=== PATIENT | male | born 1955 | race Caucasian/White ===

== ENCOUNTER 2018-06-23 05:32 | Inpatient (IN) | payer OTHER ==
[2018-06-23] MEDS ORDERED: LIDOCAINE 1% 2 ML INJ ID PRN (05:38)
[2018-06-23] MEDS ORDERED: LR 1,000 ML IV ONE (05:38)
[2018-06-23] MEDS ORDERED: GADOBUTROL 10 ML VIAL IVP ONE (05:57)
[2018-06-23 06:39] LABS: PLATELET COUNT 254 10^3/uL (150-400)
--- NOTE | 2018-06-23 06:45 | PDANEPAE ---
ANE Past Medical History - Cardiovascular History Hx Hypertension: No Hx Arrhythmias: No Hx Chest Pain: No Hx Coronary Artery / Peripheral Vascular Disease: No Hx CHF / Valvular Disease: No Hx Palpitations: No - Pulmonary History Hx COPD: No Hx Asthma/Reactive Airway Disease: No Hx Recent Upper Respiratory Infection: No Hx Oxygen in Use at Home: No Hx Sleep Apnea: No Sleep Apnea Screening Result - Last Documented: Negative - Neurologic History Hx Cerebrovascular Accident: No Hx Seizures: Yes Hx Dementia: No Neurologic History Comment: 06/09/18. RT POSTERIOR TEMPORAL LOBE LESION - Endocrine History Hx Diabetes: No - Renal History Hx Renal Disorders: No - Liver History Hx Hepatic Disorders: No - Neurological & Psychiatric Hx Hx Neurological and Psychiatric Disorders: No - Cancer History Hx Cancer: No - Congenital Disorder History Hx Congenital Disorders: No - GI History Hx Gastrointestinal Disorders: Yes Gastrointestinal History Comment: METALLIC ORAL TASTE SINCE SEIZURE 06/09/18 - Chronic Pain History Chronic Pain: No - Surgical History Prior Surgeries: NONE ANE Review of Systems Review of Systems: - Exercise capacity METS (RN): 4 METS ANE Patient History - Allergies Allergies/Adverse Reactions: No Known Allergies Allergy (Unverified 06/22/18 15:07) - Home Medications Home Medications: ARMOUR THYROID DAILY 06/22/18 [Last Taken 06/23/18 04:15] DEXAMETHASONE TID 06/22/18 [Last Taken 06/22/18 23:00] Keppra BID 06/22/18 [Last Taken 06/22/18 22:15] - NPO status NPO Since - Liquids (Date): 06/23/18 NPO Since - Liquids (Time): 05:30 NPO Since - Solids (Date): 06/22/18 NPO Since - Solids (Time): 20:00 - Smoking Hx Smoking Status: Never smoked - Family Anes Hx Family Hx Anesthesia Complications: NONE ANE Labs/Vital Signs - Labs Result Diagrams: 06/23/18 06:05 - Vital Signs Blood Pressure: 121/78 Heart Rate: 66 Respiratory Rate: 16 O2 Sat (%): 92 Height: 185.42 cm Weight: 100.244 kg ANE Physical Exam - Airway Neck exam: FROM Mallampati Score: Class 3 Mouth exam: normal dental/mouth exam - Pulmonary Pulmonary: clear to auscultation - Cardiovascular Cardiovascular: regular rate and rhythym - ASA Status ASA Status: III
[2018-06-23] MEDS ORDERED: HYDROGEN PEROXIDE 236 ML BOTTLE TP ONE (07:00)
[2018-06-23] MEDS ORDERED: CHLORHEXIDINE GLUC HIBICLENS 118 ML BTL TP ONE (07:00)
[2018-06-23] MEDS ORDERED: THROMBIN (BOVINE) 5,000 UNIT VIAL TP ONE (07:00)
[2018-06-23] MEDS ORDERED: BACITRACIN ZINC 0.5 OZ OINTTUBE TP ONE (07:00)
[2018-06-23] MEDS ORDERED: MANNITOL 20% 100 GM/500 ML BAG IV ONE (07:00)
[2018-06-23] MEDS ORDERED: SURGIFLO MATRIX KIT WITH THROMBIN 8 ML TP ONE (07:00)
[2018-06-23] MEDS ORDERED: AVITENE POWDER 1 GM JAR TP ONE (07:01)
[2018-06-23] MEDS ORDERED: GENTAMICIN SULFATE 80 MG/2 ML VIAL ONE (07:01)
[2018-06-23] MEDS ORDERED: BUPIVACAINE/EPI 0.25% 30 ML SDV ONE (07:01)
[2018-06-23] MEDS ORDERED: POVIDONE-IODINE 30 GM OINTTUBE TP ONE (07:01)
[2018-06-23] MEDS ORDERED: REMIFENTANIL HCL 1 MG VIAL ONE ×2 (07:19→10:45)
[2018-06-23] MEDS ORDERED: PROPOFOL/EMULSION 500 MG/50 ML BOTTLE IV ONE ×2 (07:19)
[2018-06-23] MEDS ORDERED: PROPOFOL 200 MG/20 ML VIAL ONE ×2 (07:19→12:59)
[2018-06-23] MEDS ORDERED: fentaNYL 250 MCG/5 ML INJ ONE (07:20)
[2018-06-23] MEDS ORDERED: ROCURONIUM 50 MG/5 ML VIAL ONE (07:26)
[2018-06-23] MEDS ORDERED: DEXAMETHASONE 4 MG/ML VIAL ONE ×3 (07:27)
[2018-06-23] MEDS ORDERED: GLYCOPYRROLATE 0.2 MG/1 ML VIAL ONE (07:28)
[2018-06-23] MEDS ORDERED: LIDOCAINE HCL 160 MG/4 ML LTA KIT TP ONE (07:29)
[2018-06-23] MEDS ORDERED: PETROLAT,WHT/MIN OIL/SOD CHL 3.5 GM OPHT.OINT ONE (07:29)
[2018-06-23] MEDS ORDERED: DEXAMETHASONE 10 MG/ML VIAL IVP ONE (07:31)
[2018-06-23] MEDS ORDERED: ceFAZolin 2 GM/DEXTROSE 100 ML IV ONE (07:31)
[2018-06-23] MEDS ORDERED: LIDOCAINE 2% 100 MG/5 ML SYR ONE (08:00)
[2018-06-23] MEDS ORDERED: THROMBIN (BOVINE) 20,000 UNIT VIAL TP ONE (08:08)
[2018-06-23] MEDS ORDERED: PHENYLEPHRINE 10 MG/ML SDV ONE (08:15)
[2018-06-23] MEDS ORDERED: levETIRAcetam 1000MG/NACL 100 ML IV ONE (08:30)
[2018-06-23] MEDS ORDERED: ePHEDrine SULFATE 25 MG/5 ML SYR ONE (11:34)
[2018-06-23] MEDS ORDERED: ceFAZolin 1 GM VIAL ONE ×2 (12:30)
[2018-06-23] MEDS ORDERED: ONDANSETRON 4 MG/2 ML VIAL ONE (13:06)
[2018-06-23] MEDS ORDERED: LABETALOL HCL 5 MG/ML 20 ML MDV IVP PRN (13:10)
[2018-06-23] MEDS ORDERED: PHENYLEPHRINE HCL 100 MCG/ML SYR IVP PRN (13:10)
[2018-06-23] MEDS ORDERED: ALBUTEROL 3 ML DEYVIAL IH PRN (13:10)
[2018-06-23] MEDS ORDERED: LR 500 ML IV PRN (13:10)
[2018-06-23] MEDS ORDERED: MEPERIDINE 25 MG/0.5 ML AMP IVP PRN (13:10)
[2018-06-23] MEDS ORDERED: PROMETHAZINE HCL 25 MG/ML INJ IVP PRN (13:10)
[2018-06-23] MEDS ORDERED: METOCLOPRAMIDE 10 MG/2 ML VIAL IVP PRN (13:10)
[2018-06-23] MEDS ORDERED: fentaNYL 100 MCG/2 ML INJ IVP PRN (13:10)
[2018-06-23] MEDS ORDERED: NALOXONE HCL 0.4 MG/ML INJ IVP PRN (13:10)
[2018-06-23] MEDS ORDERED: ONDANSETRON 4 MG/2 ML VIAL IVP PRN (13:10)
[2018-06-23] MEDS ORDERED: HYDROmorphONE/DILAUDID 1 MG/ML INJ IVP PRN (13:10)
[2018-06-23] MEDS ORDERED: NS 500 ML IV PRN (13:10)
[2018-06-23] MEDS ORDERED: POLYETHYLENE GLYCOL 3350 17 GM PKT PO PRN (14:01)
[2018-06-23] MEDS ORDERED: MAGNESIUM HYDROXIDE 30 ML UDCUP PO PRN (14:01)
[2018-06-23] MEDS ORDERED: BISACODYL 10 MG SUPP PR PRN (14:01)
[2018-06-23] MEDS ORDERED: MAG HYDROX/AL HYDROX/SIMETH 30 ML UDCUP PO PRN (14:01)
[2018-06-23] MEDS ORDERED: LACTULOSE 20 GM/30 ML UDCUP PO PRN (14:01)
[2018-06-23] MEDS ORDERED: HYDROCODONE/APAP 10/325 TAB PO PRN (14:01)
--- NOTE | 2018-06-23 14:01 | POSTOPPROG ---
Post Op Note Date of Operation: 06/23/18 Surgeon: Blane Brink Rod Filler: none Anesthesiologist: Anum Anesthesia: GET(General Endotracheal) Pre-op Diagnosis: right temporal brain tumor Post-op Diagnosis: same Indication: same Procedure: right temporal craniotomy for tumor resection Findings: see dictation Inf/Abcess present in the surg proc area at time of surgery?: No EBL: 100-500 Total fluids administered: 1500 Complications: NONE Bowel Protocol: No Clean Closure Performed: No
--- NOTE | 2018-06-23 14:14 | PDCONSULT ---
Black Leather Trimmer Note: NEUROSURGERY resting in PACU AAOx3, speech fluent, CNII-XII intact, no notable visual deficit full strength, no drift wound c/d/i POD#1 s/p right temporal tumor resection - doing well - dex 4q6 - keppra - MRI in AM - SBP<140 - q2h neuro checks Keena
[2018-06-23] MEDS ORDERED: NS W/ 20 KCl/L 1,000 ML IV SCH (14:15)
--- NOTE | 2018-06-23 14:33 | PDMN ---
Medical Necessity Medical necessity: MCG: S 410 craniotomy, supratentorial 3 days INPO list - OP: R temporal craniotomy for tumor resection
[2018-06-23] MEDS: DEXAMETHASONE 4 MG TAB PO SCH (17:37)
--- NOTE | 2018-06-23 18:33 | GOP ---
[f rep st] OPERATIVE REPORT DATE OF OPERATION: 06/23/2018 SURGEON: Blane Brink MD NEUROSURGEON: Blane Brink MD. HOSPICE PLAN ADMINISTRATOR: None. ANESTHESIA: General endotracheal. PREOPERATIVE DIAGNOSIS: Right posterior temporal glioma. POSTOPERATIVE DIAGNOSIS: Right posterior temporal glioma. PROCEDURE PERFORMED: 1. Right temporal craniotomy. 2. Microsurgical gross total resection of right temporal glioma. 3. Use of Stealth stereotactic navigation for volumetric gross total resection of tumor. 4. Use of the operative microscope. 5. Intraoperative neurophysiologic monitoring, including somatosensory-evoked potentials and motor-e voked potentials. FINDINGS: Right temporal high-grade glioma. SPECIMENS: Right temporal brain tumor for frozen and permanent pathology. ESTIMATED BLOOD LOSS: 100 mL. DESCRIPTION OF PROCEDURE: After informed consent was obtained from the patient, the patient was brou ght to the operating room and was placed in a supine position on the operating table. A formal time- out was performed, identifying the patient by name, medical record number and date of . Preoper ative antibiotics were given, an endotracheal tube was placed and general endotracheal anesthesia was smoothly induced. The patient's head was placed in Schwartz pins and turned slightly toward the lef t side with a right-sided shoulder roll. The Stealth was then registered to the scalp and checked fo r accuracy using known surface landmarks. All appropriate leads were placed for intraoperative neuro physiologic monitoring, including somatosensory-evoked potentials and EMG. The navigation was then u sed to localize the tumor and plan a trapdoor style upside-down U-shaped incision over the right ear. 10 mL of 0.25% Marcaine with epinephrine was infiltrated in the skin for hemostasis. The head was then prepped and draped in the normal sterile fashion. A skin incision was made using a 10 blade and the subcutaneous tissues were dissected using monopolar electrocautery. Clary clips were placed for hemostasis. The temporalis muscle and its fascia were opened in line with the incision and a single myocutaneous flap was retracted inferiorly. Again, the navigation was used to be sure that our cran iotomy would be large enough. Two miranda holes were then placed at the inferior temporal fossa and a s brittnee miranda hole superior to the tumor. The craniotome was then used to turn a 4 x 4 cm craniotomy fl ap, encompassing the entirety of the tumor. After all bleeding was controlled using bipolar electroc autery and Gelfoam, the dura was opened in a curvilinear fashion with its base inferiorly and the bra in was visualized. At this point, the operative microscope was brought into the field and the remain jacquelin of the procedure was performed under high-powered magnification. First, the brain was inspected and the gyri and sulci were all inspected. A sulcus just superior to the vein of Jhon was selected and careful arachnoid dissection allowed us to deepen our visualization into the sulcus. After compl ete sulcal opening, a corticectomy was made laterally in the sulcus and some of the underlying tissue was removed. This took us down to the abnormal-appearing tissue of the tumor. This was biopsied an d sent for frozen section, which returned as a glioma. We then very carefully, using microdissection , bipolar electrocautery and suction, the tumor capsule from the surrounding brain. Two ca vities, which were visualized on the preoperative imaging of hemorrhage, were identified and these se rved as the anterior and superior borders of the tumor resection. Some of the tumor was removed kristen sly, but the remaining tumor was removed using the ultrasonic aspirator. Care was taken to preserve the deeper middle cerebral artery vessels in the sulci and we continued this dissection in a circumfe rential fashion around the tumor, starting with the anterior and inferior aspects and finishing with the superior and posterior aspects of the tumor. As we coursed deep in the area of the optic radiati ons, much care was taken to separate what was thought to be tumor from the normal tissue. The ultras onic aspirator was used to peel this tissue from the small band coursing between the tumor and the ve ntricle where the optic radiations were sitting. The ventricle was entered slightly in 1 area, which allowed us to be clear that we had reached the medial border of the tumor. At this point, the navig ation was off because of the relaxation of the brain, but we were able to inspect the cavity. Anteri concha and medially, some more tumor was removed until we were able to visualize normal tissue. The en tirety of the border of the cavity was inspected and I did not see any other abnormal-looking tissue suggestive of tumor. All the bleeding had also stopped, suggesting a gross total resection. At this point, Surgicel was used to line the cavity. The cavity was completely dry and there was no further bleeding. The wound was copiously irrigated using sterile saline. The sulcus was allowed to close and the surface of the brain was inspected. The dura was then closed in a watertight fashion using r unning 4-0 Nurolon. A large piece of Gelfoam was placed over the dura and the craniotomy flap was pl ated back in place using Synthes titanium plates and screws. Final motor-evoked potentials and somat osensory-evoked potentials remained stable. The wound was then copiously irrigated using bacitracin irrigation. The temporalis muscle and the fascia were closed using interrupted 2-0 Vicryls. The gal ea was closed using interrupted 2-0 Vicryls and the skin was closed using a running, locking 3-0 Prol ken. The hair was washed and sterile dressings were placed. The patient was then removed from the [facility] where he was extubated and was transferred to the PACU in stable condition. There were no operative complications. I was scrubbed and present for the entire procedure. All sponge and nee dle counts were correct at the end of the case. BRIEF CLINICAL HISTORY: The patient is a -vpjg-wac man who was having some seizures recent ly. He was transferred to [facility] where workup revealed a rim-enhancing lesion about 3.5 cm in the posterior temporal lobe deep to the surface near the angular gyrus. This was thought to be a gliobla stoma and ultimately, he was discharged and decided to follow up with our team. He presents elective ly today for surgery after extensive discussion of the risks and benefits. FLUIDS/URINE OUTPUT: Per the Anesthesia record. DRAINS: There were no drains. /[id number]/MODL
[2018-06-23] MEDS: ACETAMINOPHEN 325 MG TAB PO PRN (18:58)
[2018-06-23] MEDS: FAMOTIDINE 20 MG TAB PO SCH (20:09)
[2018-06-23] MEDS: levETIRAcetam 500 MG TAB PO SCH (20:09)
[2018-06-23] MEDS: SENNOSIDES/DOCUSATE SODIUM TAB PO SCH (20:10)
[2018-06-24] MEDS: DEXAMETHASONE 4 MG TAB PO SCH ×5 (00:36→23:56)
[2018-06-24] MEDS: ACETAMINOPHEN 325 MG TAB PO PRN ×3 (00:36→23:57)
[2018-06-24 04:29] LABS: PLATELET COUNT 213 10^3/uL (150-400)
--- NOTE | 2018-06-24 08:01 | NEUSURGPN ---
Assessment/Plan: A/P: POD#1 s/p right temporal tumor resection - doing well overall, minimal pain - dex 4q6 - keppra - MRI this morning -DC A-line - SBP<140 -PT/OT - q4h neuro checks -Can transfer to floor if MRI looks good -Patient seen by Dr. Brink as well this am S: Patient states he is doing well with minimal pain and no obvious changes in his vision that he can tell. O: AAOx3, speech fluent, CNII-XII intact, no notable visual deficit full strength, no drift wound c/d/i - Physician Discussed Patient with : Keena Neurosurgery Physical Exam - Vitals, I&O, Labs I and O 06/23/18 06/24/18 06/25/18 05:59 05:59 05:59 Intake Total 3540 Output Total 4800 Balance -1260 Weight 100.244 kg 100.244 kg Intake: Oral (ml) 1110 IV Intake (ml) 1600 IV Infused (ml) 830 NS W/ 20 KCl/L 1,000 ml @ 830 100 mls/hr IV CONT JULIA Rx#:[id number] Output: Urine (ml) 4650 Catheter 4650 Estimated Blood Loss (ml) 150 Other: Number of Stools Catheter 0 Vital Signs Temp Pulse Resp BP Pulse Ox 36.9 C 54 L 14 135/65 H 96 06/24/18 04:00 06/24/18 06:00 06/24/18 06:00 06/24/18 06:00 06/24/18 06:00 Laboratory Results 06/24/18 04:15 06/24/18 04:15 ICD10 Worksheet Patient Problems: Problems Problem Status Onset Malignant neoplasm of brain Acute - ICD10 Problem Qualifiers (1) Malignant neoplasm of brain
--- NOTE | 2018-06-24 08:02 | POSTANESTH ---
Post Anesthetic Evaluation Cardiovascular Status: Normal, Stable Respiratory Status: Normal, Stable Level of Consciousness/Mental Status: Can Participate in Eval Pain Control: Adequate, Prn Tx Ordered Nausea/Vomiting Control: Adequate, Prn Tx Ordered
[2018-06-24] MEDS: levETIRAcetam 500 MG TAB PO SCH ×2 (09:13→21:15)
[2018-06-24] MEDS: SENNOSIDES/DOCUSATE SODIUM TAB PO SCH ×2 (09:13→21:15)
[2018-06-24] MEDS: FAMOTIDINE 20 MG TAB PO SCH ×2 (09:13→21:16)
[2018-06-24] MEDS ORDERED: GADOBUTROL 10 ML VIAL IVP ONE (09:23)
[2018-06-25] MEDS: DEXAMETHASONE 4 MG TAB PO SCH (05:44)
[2018-06-25] MEDS: ACETAMINOPHEN 325 MG TAB PO PRN (08:55)
[2018-06-25] MEDS: SENNOSIDES/DOCUSATE SODIUM TAB PO SCH (08:56)
[2018-06-25] MEDS: levETIRAcetam 500 MG TAB PO SCH (08:56)
[2018-06-25] MEDS: FAMOTIDINE 20 MG TAB PO SCH (08:56)
--- NOTE | 2018-06-25 09:05 | SOAPPROG ---
SOAP Progress Note Assessment/Plan: Assessment: POD #1 sp Right posterior temporal craniotomy for resection of tumor. Path pending Doing well Plan: DC dressing PT/OT/ST. Once he clears therapies he may DC to home. He has post op appt already scheduled with Dr. Brink Plan discussed with Dr. Brink 06/25/18 09:02 Subjective: up walking in room. Had BM this AM. Pain well controlled. Denies any neuro changes. present and supportive Objective: Vital Signs Temp Pulse Resp BP Pulse Ox 36.6 C 60 16 125/87 H 4 L 06/25/18 07:28 06/25/18 07:28 06/25/18 07:28 06/25/18 07:28 06/25/18 07:28 Laboratory Results 06/24/18 04:15 06/24/18 04:15 06/24/18 06/25/18 06/26/18 05:59 05:59 05:59 Intake Total 3540 1600 Output Total 5840 4239 400 Balance -1260 -626 -400 Neuro: PERRLA, no droop, no drift equal strength throughout,sens +LT Ambulatory speech clear Dressing: CDI ICD10 Worksheet Patient Problems: Problems Problem Status Onset Malignant neoplasm of brain Acute
--- NOTE | 2018-06-25 09:53 | ASMTLACE ---
LACE Length of stay for Answers: 3 days current admission Acuity / Level of Answers: Yes Care: Did the patient have an inpatient admission? Comorbidities - select Answers: Any tumor (including all that apply lymphoma or leukemia) # of Emergency department Answers: 0 visits in the last 6 months Score: 8 Date Signed: 06/25/2018 09:53 AM Electronically Signed By:CAITLYN Phoenix
[2018-06-25 11:54] VITALS: BP 119/78
--- NOTE | 2018-06-25 15:12 | ASMTCMCOM ---
CM Note CM Note Notes: Pt had crani for temporal tumor. 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 Pt medically stable for d/c with spouse and nsg follow up. No CM d/c needs identified. Date Signed: 06/25/2018 03:11 PM Electronically Signed By:CAITLYN Phoenix
== END 2018-06-25 14:00 | disposition home or self-care (01) | DRG 27 ==
LOC: F3N 05:32 → F2N 07:28 → F3N 06-24 13:21
PROVIDERS: ADMIT Neurological Surgery; ATTEND Neurological Surgery
PROC: 00B00ZZ Excision of Brain, Open Approach (ICD-10-PCS; principal; 2018-06-23 08:30)
PROC: 4A1004G Monitoring of Central Nervous Electrical Activity, Intraoperative, Open Approach (ICD-10-PCS; principal; 2018-06-23 08:30)
PROC: 8E09XBZ Computer Assisted Procedure of Head and Neck Region (ICD-10-PCS; principal; 2018-06-23 08:30)
DX: C71.2 Malignant neoplasm of temporal lobe (principal)
CPT/HCPCS: 88323-90; 88342; 92507-GN; 92523-GN; 97162-GP; 97165-GO; 97530-GP; A9585; C1713; J0690; J1100; J1580; J1953; J2001; J2370; J2405; J2704; J3010

== ENCOUNTER → 2018-07-22 | Outpatient (CLI) | payer OTHER | LOC: EMCIMAGING 14:37 | PROVIDERS: ATTEND Nurse Practitioner | DX: C71.9 Malignant neoplasm of brain, unspecified (principal); M62.81 Muscle weakness (generalized) | CPT/HCPCS: 70553-PN ==